=== PATIENT | male | born 1965 | race African-American/Black ===

== ENCOUNTER 2025-06-19 17:32 | Inpatient (IN) | payer OTHER ==
[2025-06-19 18:38] VITALS: BMI 25.7
[2025-06-19] MEDS ORDERED: guaiFENesin 600 MG TABLET.ER (FP) PO PRN (19:07)
[2025-06-19] MEDS ORDERED: MAG HYDROX/AL HYDROX/SIMETH 30 ML UNIT-DOSE CUP PO PRN (19:07)
[2025-06-19] MEDS ORDERED: BENZOCAINE/MENTHOL (CHLORASEPTIC ) LOZENGE MM PRN (19:07)
[2025-06-19] MEDS ORDERED: NICOTINE POLACRILEX 2 MG GUM BUC PRN (19:07)
[2025-06-19] MEDS ORDERED: IBUPROFEN 400 MG TABLET (FP) PO PRN (19:07)
[2025-06-19] MEDS ORDERED: BISMUTH SUBSALICYLATE 524 MG/30 ML PO PRN (19:07)
[2025-06-19] MEDS ORDERED: MAGNESIUM HYDROX 2400MG/30ML ORAL SUSPENSION 30 ML CUP PO PRN (19:07)
[2025-06-19] MEDS ORDERED: ACETAMINOPHEN 325 MG TABLET (FP) PO PRN (19:07)
[2025-06-19] MEDS ORDERED: IBUPROFEN 600 MG TABLET (FP) PO PRN (19:07)
[2025-06-19] MEDS ORDERED: LOPERAMIDE HCL 2 MG CAPSULE PO PRN (19:07)
[2025-06-19] MEDS ORDERED: NALOXONE (NARCAN) HCL 4 MG/0.1 ML SPRAY NS PRN (19:07)
[2025-06-19] MEDS ORDERED: ONDANSETRON *ODT* 4 MG TABLET SL PRN (19:07)
[2025-06-19] MEDS ORDERED: BENZONATATE 200 MG CAPSULE PO PRN (19:07)
[2025-06-19] MEDS ORDERED: POLYETHYLENE GLYCOL (HEALTHYLAX) 3350 17 GM PACKET PO PRN (19:07)
[2025-06-19] MEDS ORDERED: DICYCLOMINE HCL 10 MG CAPSULE PO PRN (19:07)
[2025-06-19] MEDS ORDERED: MELATONIN 5 MG TABLETS ONE (22:18)
[2025-06-19] MEDS: MELATONIN 5 MG TABLETS PO SCH (22:22)
[2025-06-19] MEDS: THIAMINE 100 MG TABLET PO SCH (22:22)
[2025-06-19] MEDS: NALTREXONE HCL 50 MG TABLET PO ONE (22:40)
[2025-06-19] MEDS: METHOCARBAMOL 500 MG TABLET PO PRN (22:42)
[2025-06-20 10:15] LABS: MCHC 32.8 g/dl (32.3-36.5); MEAN CELL VOLUME 90.4 fl (79.0-92.2); MEAN PLT VOLUME 10.9 fl (9.4-12.4); RDW 16.1 % (12.2-16.1)
[2025-06-20 10:25] LABS: GLUCOSE,RANDOM 83 mg/dL (74-106); TOT PROT 6.2 g/dl (6.4-8.2)
[2025-06-20 10:26] LABS: CO2 26 mmol/L (21-32)
[2025-06-20 10:27] LABS: ALK PHOS 43 U/L (40-150)
[2025-06-20 10:30] LABS: CREATININE 1.56 mg/dL (0.55-1.3); SGOT/AST 23 U/L (5-34); SGPT/ALT 6 U/L (0-55)
[2025-06-20] MEDS: NALTREXONE HCL 50 MG TABLET PO SCH (10:46)
[2025-06-20] MEDS: PRENATAL VITAMINS W/ FOLIC ACID TABLET (FP) PO SCH (10:46)
[2025-06-20] MEDS: NICOTINE 14 MG/24 HOURS TOPICAL PATCH TD SCH (10:46)
[2025-06-20] MEDS: amLODIPine BESYLATE 10 MG TABLET (FP) PO SCH (11:37)
[2025-06-20] MEDS: hydrALAZINE HCL 25 MG TABLET (FP) PO ONE (17:07)
[2025-06-21] MEDS: HYDROCHLOROTHIAZIDE 25 MG TABLET (FP) PO SCH (10:01)
[2025-06-22 12:53] LABS: GLUCOSE,RANDOM 85.0 mg/dL (74-106)
[2025-06-22 12:54] LABS: CO2 27.0 mmol/L (21-32)
[2025-06-22 12:58] LABS: CREATININE 1.24 mg/dL (0.55-1.3)
[2025-06-23 06:32] VITALS: BP 152/87; PULSE 71; RESP 16; TEMP 98.6
== END 2025-06-23 08:42 | disposition home or self-care (01) | DRG 774 ==
LOC: YASAS 17:32 → Y3N 21:53
PROVIDERS: ADMIT Allergy & Immunology; ATTEND Allergy & Immunology
PROC: HZ2ZZZZ Detoxification Services for Substance Abuse Treatment (ICD-10-PCS; principal; 2025-06-19)
DX: F10.230 Alcohol dependence with withdrawal, uncomplicated (principal); F14.20 Cocaine dependence, uncomplicated; F17.210 Nicotine dependence, cigarettes, uncomplicated; F43.10 Post-traumatic stress disorder, unspecified; F41.9 Anxiety disorder, unspecified; F32.A Depression, unspecified; E78.2 Mixed hyperlipidemia; I10 Essential (primary) hypertension; Z86.73 Personal history of transient ischemic attack (TIA), and cerebral infarction without residual deficits
CPT/HCPCS: 36415; 71046-TC-FY; 80048; 80053; 80307; 85027; 86780; 93005; 93010